=== PATIENT | female | born 1980 | race Caucasian/White ===

== ENCOUNTER 2018-08-10 06:34 | Day surgery (SDC) | payer OTHER ==
[2018-08-10] MEDS ORDERED: SEVOFLURANE 250 ML LIQUID IH ONE (08:48)
[2018-08-10] MEDS ORDERED: DEXMEDETOMIDINE HCL 200 MCG/2 ML VIAL IV ONE (08:48)
[2018-08-10] MEDS ORDERED: METOPROLOL TARTRATE 5 MG/5 ML VIAL IV ONE (08:48)
[2018-08-10] MEDS ORDERED: PROPOFOL 200 MG/20 ML VIAL IV ONE (08:48)
[2018-08-10] MEDS ORDERED: SUGAMMADEX SODIUM 200 MG/2 ML VIAL IV ONE (08:48)
[2018-08-10] MEDS ORDERED: BUPIV. HCL 0.25% (2.5MG/ML)/EPI. (1:200,000) PF 30 ML VIAL IJ ONE (08:48)
[2018-08-10] MEDS ORDERED: PROMETHAZINE HCL 25 MG/ML VIAL ONE (08:48)
[2018-08-10] MEDS ORDERED: LACTATED RINGERS 1,000 ML IV.SOLN IV ONE (08:48)
[2018-08-10] MEDS ORDERED: LIDOCAINE HCL 2% PF 100MG/5ML VIAL IJ ONE (08:48)
[2018-08-10] MEDS ORDERED: LIDOCAINE HCL 1% PF 300MG/30ML VIAL ONE (08:48)
[2018-08-10] MEDS ORDERED: SODIUM CHLORIDE IRRIG SOLUTION 3,000 ML IRRIG.SOLN IR ONE (08:48)
[2018-08-10] MEDS ORDERED: ONDANSETRON HCL/PF 4 MG/ 2ML VIAL ONE (08:48)
[2018-08-10] MEDS ORDERED: ceFAZolin SODIUM 1 GM VIAL ONE (08:48)
[2018-08-10] MEDS ORDERED: LORazepam 2 MG/ML VIAL ONE (08:48)
[2018-08-10] MEDS ORDERED: ROCURONIUM BROMIDE 10 MG/ML 5ML VIAL ONE (08:48)
[2018-08-10] MEDS ORDERED: DEXAMETHASONE SODIUM PHOSPHATE 10 MG/ML VIAL ONE (08:48)
[2018-08-10] MEDS ORDERED: MIDAZOLAM HCL 2 MG/2 ML VIAL ONE (08:48)
[2018-08-10] MEDS ORDERED: ENOXAPARIN SODIUM 40 MG/0.4 ML DISP.SYRIN SQ ONE (08:48)
[2018-08-16 09:45] LABS: BASOPHILS % 0.4 % (0.0-1.5); NEUTROPHILS # 6.3 # k/uL (1.4-7.7)
== END 2018-08-10 11:49 | disposition other institution (70) ==
LOC: OPSURG 06:34
PROVIDERS: ATTEND Surgery
DX: E66.01 Morbid (severe) obesity due to excess calories (principal); I10 Essential (primary) hypertension; E11.9 Type 2 diabetes mellitus without complications; Z68.42 Body mass index [BMI] 45.0-49.9, adult
CPT/HCPCS: 43775; 85025; 88305; 97116; 97161; J0690; J1650; J2001; J2060; J2250; J2405; J2550; J2704; J3490; J7120

== ENCOUNTER 2018-08-10 11:50 | Inpatient (IN) | payer OTHER ==
[2018-08-10] MEDS ORDERED: NORMAL SALINE 1,000 ML IV.SOLN IV ONE ×2 (12:03→19:00)
[2018-08-10] MEDS ORDERED: MORPHINE SULFATE 4 MG/ML VIAL ONE (13:00)
[2018-08-10] MEDS ORDERED: ACETAMINOPHEN 1,000 MG/100 ML INJ IV ONE (16:20)
[2018-08-10] MEDS ORDERED: ceFAZolin SODIUM 1 GM/50 ML PIGGYBACK IV ONE (18:00)
[2018-08-10] MEDS ORDERED: MORPHINE SULFATE 2 MG/ML VIAL ONE (21:17)
[2018-08-11] MEDS ORDERED: MAG HYDROX/ALUMINUM HYD/SIMETH 30 ML UDC PO ONE (01:16)
[2018-08-11] MEDS ORDERED: ONDANSETRON HCL/PF 4 MG/ 2ML VIAL ONE (01:16)
[2018-08-11] MEDS ORDERED: NORMAL SALINE 1,000 ML IV.SOLN IV ONE ×2 (01:30→11:30)
[2018-08-11] MEDS ORDERED: ceFAZolin SODIUM 1 GM/50 ML PIGGYBACK IV ONE (02:00)
[2018-08-11] MEDS ORDERED: MORPHINE SULFATE 2 MG/ML VIAL ONE (02:15)
[2018-08-11] MEDS ORDERED: FAMOTIDINE 20 MG/2 ML VIAL IV ONE ×2 (08:07→21:36)
[2018-08-11] MEDS ORDERED: ENOXAPARIN SODIUM 40 MG/0.4 ML DISP.SYRIN SQ ONE (08:07)
[2018-08-11] MEDS ORDERED: HYDROcodone-ACETAMIN 7.5-325/15ML SOLN UD CUP PO ONE ×2 (08:07→21:36)
[2018-08-11] MEDS ORDERED: 0.9 % SODIUM CHLORIDE 50 ML IV.SOLN IV ONE (08:07)
[2018-08-11] MEDS ORDERED: ACETAMINOPHEN 1,000 MG/100 ML INJ IV ONE (14:00)
[2018-08-11] MEDS ORDERED: ACETAMINOPHEN 325 MG TABLET ONE (18:45)
[2018-08-16 10:11] LABS: BASOPHILS % 0.6 % (0.0-1.5); NEUTROPHILS # 12.6 # k/uL (1.4-7.7); eGFR (Non-African) > 60
== END 2018-08-12 12:00 | disposition home or self-care (01) | DRG 621 ==
LOC: SOUTH 11:50
PROVIDERS: ADMIT Nurse Practitioner Family; ATTEND Nurse Practitioner Family
PROC: 0DB64Z3 Excision of Stomach, Percutaneous Endoscopic Approach, Vertical (ICD-10-PCS; principal; 2018-08-10)
DX: E66.01 Morbid (severe) obesity due to excess calories (principal); I10 Essential (primary) hypertension; E11.9 Type 2 diabetes mellitus without complications; K21.9 Gastro-esophageal reflux disease without esophagitis; F41.9 Anxiety disorder, unspecified; G89.29 Other chronic pain; M54.9 Dorsalgia, unspecified; M19.90 Unspecified osteoarthritis, unspecified site; F32.9 Major depressive disorder, single episode, unspecified; J45.909 Unspecified asthma, uncomplicated; F17.210 Nicotine dependence, cigarettes, uncomplicated; M10.9 Gout, unspecified; Z91.5 Personal history of self-harm; Z88.8 Allergy status to other drugs, medicaments and biological substances; Z79.84 Long term (current) use of oral hypoglycemic drugs; Z68.42 Body mass index [BMI] 45.0-49.9, adult; Z79.899 Other long term (current) drug therapy; Z82.3 Family history of stroke; Z83.3 Family history of diabetes mellitus; Z82.49 Family history of ischemic heart disease and other diseases of the circulatory system; Z98.51 Tubal ligation status
CPT/HCPCS: 80053; 85025; 97165; 97530; A9270; J1650; J2270; J2405; J7030; 99221